=== PATIENT | female | born 1995 | race Two or more races ===

== ENCOUNTER 2024-06-13 19:47 | Emergency (ER) | payer OTHER ==
[~2024-06-13] VITALS: Ht 149.9 cm; Wt 62.1 kg
[~2024-06-13 19:47] MED LIST: DICLOFENAC SODI75 MG PO
[2024-06-13 20:54] LABS: HEMATOCRIT 38.5 % (36.0-45.00); MEAN CELL VOLUME 88.5 fL (80.00-100.00); MEAN CORPUSCULAR HEMOGLOBIN 29.9 pg (27.00-32.0); MEAN CORPUSCULAR HGB CONC 33.7 g/dl (32.0-36.0); PLATELET COUNT 256 K/uL (150-450); RED BLOOD COUNT 4.35 M/uL (4.00-6.00); RED CELL DISTRIBUTION WIDTH 13.6 % (11.5-14.5)
[2024-06-13 23:30] LABS: URINE APPEARANCE Cloudy; URINE BILIRRUBIN Negative (NEGATIVE); URINE BLOOD Negative; URINE COLOR Yellow; URINE GLUCOSE Negative (NEGATIVE); URINE KETONE 15 (NEGATIVE); URINE LEUKOCYTE Small; URINE NITRATE Positive; URINE PROTEIN Negative (NEGATIVE)
[2024-06-13 23:33] LABS: URINE EPITHELIAL CELLS 45.4 uL (0.0-38.8); URINE WBC 114.4 uL (0.0-23.2)
[2024-06-13] MEDS ORDERED: CEFTRIAXONE SODIUM 1,000 MG VIAL IM ONE (23:45)
[2024-06-13 23:47] LABS: URINE BACTERIA > 9821.5 uL (0.0-1933); URINE RBC 1.8 uL (0.0-20.8)
[2024-06-13] MEDS ORDERED: CEFTRIAXONE SODIUM 1,000 MG VIAL ONE (23:52)
[2024-06-13] MEDS ORDERED: LIDOCAINE HCL 1% 10ML VIAL ONE (23:53)
[2024-06-13] MEDS ORDERED: MACRODANTIN100 M1 PO (23:53)
== END 2024-06-13 23:58 | disposition home or self-care (01) ==
LOC: ER 19:48
PROVIDERS: General Practice
DX: O23.31 Infections of other parts of urinary tract in pregnancy, first trimester (principal); N39.0 Urinary tract infection, site not specified; Z3A.01 Less than 8 weeks gestation of pregnancy